=== PATIENT | male | born 1955 | race Caucasian/White ===

== ENCOUNTER 2022-03-05 21:09 | Emergency (ER) | payer OTHER ==
[~2022-03-05] VITALS: Ht 175.3 cm; Wt 78.0 kg
[2022-03-05] MEDS ORDERED: SOME BP MED (21:14)
[2022-03-05 23:16] VITALS: BP 142/92
== END 2022-03-05 23:16 | disposition home or self-care (01) ==
LOC: ED 21:09
DX: S93.104A Unspecified dislocation of right toe(s), initial encounter (principal); W22.8XXA Striking against or struck by other objects, initial encounter; Y92.59 Other trade areas as the place of occurrence of the external cause; Y99.0 Civilian activity done for income or pay
CPT/HCPCS: 90714; J1885